=== PATIENT | female | born 1995 | race Hispanic/Latino ===

== ENCOUNTER → 2022-11-04 13:55 | Outpatient (CLI) | payer OTHER, SELFPAY ==
[2022-11-04 15:02] LABS: Appearance Urine UA CLEAR; Bilirubin Urine UA NEGATIVE (NEGATIVE); Color Urine UA YELLOW; Glucose Urine UA 1+ g/dL (Negative); Ketones Urine UA 1+ (NEGATIVE); Leukocyte Esterase Urine UA NEGATIVE (NEGATIVE); Nitrite Urine UA NEGATIVE (Negative); Occult Blood Urine UA TRACE-INTACT (Negative); Protein Urine UA NEGATIVE (Negative); Specific Gravity Urine UA >=1.030 (1.000-1.035)
[2022-11-04 15:08] LABS: Add Manual Diff / Slide Review NO; Basophils Absolute Auto 0 /uL (0-100); Basophils Percent Auto 0.2 % (0-2); Eosinophils Absolute Auto 100 /uL (0-450); Eosinophils Percent Auto 0.9 % (2-4); Hematocrit 37.2 % (36-46); Hemoglobin 12.8 g/dL (12.0-16.0); Lymphocytes Absolute Auto 1500 /uL (1100-4500); Mean Corpuscular HGB Conc 34.3 % (30-36); Mean Corpuscular Hemoglobin 29.8 PG (26-34); Mean Corpuscular Volume 86.8 fL (80-100); Monocytes Absolute Auto 700 /uL (0-900); Monocytes Percent Auto 6.9 % (3-14); Neutrophils Absolute Auto 8200 /uL (1500-7000); Platelet Count 341 X10^3/uL (150-400); Red Blood Cell Count 4.29 X10^6/uL (4.0-5.2); Red Cell Distribution Width 12.9 % (11.6-14.8); White Blood Cell Count 10.5 X10^3/uL (4.5-11.0)
[2022-11-05 03:34] LABS: RPR Screen Non Reactive (Non Reactive)
[2022-11-05 08:29] LABS: Varicella IgG Antibody 260 index (Immune >165)
[2022-11-07 16:14] LABS: Hepatitis B Surface Antigen NEGATIVE s/c (NEGATIVE)
[2022-11-07 16:30] LABS: HIV 1 & 2 Ab/Ag 4th Gen Combo NEGATIVE (NEGATIVE); Hep C Virus Ab w/Reflex Quant NEGATIVE s/c (NEGATIVE)
== END ==
PROVIDERS: PCP Internal Medicine; Referring Provider Family Medicine; Visit Provider Family Medicine
DX: Z34.81 Encounter for supervision of other normal pregnancy, first trimester (principal)
CPT/HCPCS: 36415; 80055; 81003; 86787; 86803; 86850; 86900; 86901; 87086; 87389

== ENCOUNTER → 2023-01-03 16:24 | Outpatient (CLI) | payer OTHER, SELFPAY ==
--- NOTE | 2023-01-03 16:25 | DI.US.S_ITS ---
PROCEDURE: US OB >= 14 WEEKS FETUS INDICATIONS: ANATOMY OUTSIDE/PRIOR DATING DATA: First dating scan (date and location): 01/03/2023 Estimated date of delivery (COSME) from first dating scan: 06/05/2023. TECHNIQUE: Real-time scanning was performed of the fetus, with image documentation and biometric measurements. COMPARISON: None. FINDINGS: General: A single living intrauterine gestation is present. Presentation: Breech. Placenta: Placental position is anterior , without previa. Amniotic fluid index: 13.7 cm, normal range is 5-24 cm. Single deepest vertical pocket is 4.3 cm. heart rate: 157 beats per minute. Maternal cervical canal: 5.7 cm long. Normal lower limit is 2.5 cm. biometrics: Biparietal diameter: 18 weeks 5 days Head circumference: 18 weeks 4 days Abdominal circumference: 18 weeks 3 days Femur length: 18 weeks Composite gestational age from present scan: 18 weeks 3 days Estimated weight and percentile: 232 g Anatomic survey: Neuro: Ventricles are non-dilated at less than 10 mm. Cisterna magna is normal at 3-11 mm. Cerebellum is normal in size and morphology. Nuchal skin fold: Normal at less than 6 mm between 14-21 weeks gestational age. Face: Nose and lips, facial profile are normal. Spine: No evidence for spina bifida. Heart: 4-chambered heart is present, with normal ventricular outflow tracts. Diaphragm: Diaphragm is intact. Stomach: Left-sided stomach is present. Kidneys: No hydronephrosis. Normal is less than 5 mm in 2nd trimester, less than 7 mm in 3rd trimester. Cord: 3-vessel cord has orthotopic insertion. Bladder: Normal in size. Extremities: All 4 extremities identified. IMPRESSION: 1. Single living IUP with mean composite gestational age of 18 weeks 3 days corresponding to COSME of 06/03/2023. 2. Normal anatomic survey. We strive to produce accurate, complete, and clear reports of imaging services. To assist us in improving patient care, this report was composed using standard report templates and voice recognition software. Therefore, it may contain abnormal punctuation, insertions and/or omissions. Occasional wrong-word or sound-alike substitutions may occur. Though we review the report and make efforts to correct it, we do recommend that the report be read carefully in proper context to recognize any text inaccuracies. Dictated by: Montrell KOCH Interpreted: Zeus Huitron MD on 01/03/2023 at 20:21 Approved by: Zeus Huitron M.D. on 01/04/2023 at 20:53
== END ==
PROVIDERS: PCP Internal Medicine; Referring Provider Family Medicine; Visit Provider Family Medicine
DX: Z34.92 Encounter for supervision of normal pregnancy, unspecified, second trimester (principal); Z3A.18 18 weeks gestation of pregnancy
CPT/HCPCS: 76811; 76830; 93975

== ENCOUNTER → 2023-03-02 16:47 | Outpatient (CLI) | payer OTHER, SELFPAY ==
[2023-03-02 18:29] LABS: Appearance Urine UA CLOUDY; Bilirubin Urine UA NEGATIVE (NEGATIVE); Color Urine UA YELLOW; Glucose Urine UA NEGATIVE (Negative); Ketones Urine UA NEGATIVE (NEGATIVE); Leukocyte Esterase Urine UA 2+ (NEGATIVE); Nitrite Urine UA NEGATIVE (Negative); Occult Blood Urine UA 2+ (Negative); Protein Urine UA TRACE (Negative); Specific Gravity Urine UA 1.015 (1.000-1.035); Urobilinogen Urine UA 0.2 E.U./dL (0.2)
[2023-03-02 18:51] LABS: RBC Urine 1-5/HPF (0-5/HPF)
[2023-03-02 18:52] LABS: Amorphous Sediment Urine 2+; Bacteria Urine Many (>30); Culture Indicated Urine Specimen Cultured; Squamous Epithelial Cell Urine 10-30 /HPF (0-5/HPF); WBC Urine 5-10/HPF (0-5/HPF)
== END ==
PROVIDERS: PCP Internal Medicine; Referring Provider Family Medicine; Visit Provider Family Medicine
DX: R30.0 Dysuria (principal)
CPT/HCPCS: 81001; 87086

== ENCOUNTER → 2023-03-21 16:50 | Outpatient (CLI) | payer OTHER, SELFPAY ==
--- NOTE | 2023-03-21 16:53 | DI.US.S_ITS ---
PROCEDURE: US RENAL COMPLETE INDICATIONS: RIGHT BACK/FLANK PAIN. . TECHNIQUE: Real-time scanning was performed of the kidneys and bladder, with image documentation. COMPARISON: None. FINDINGS: Kidneys: Kidneys are normal in size. Right kidney measures 11.5 cm long; left kidney measures 10.1 cm long. Right renal cortical thickness is 1.1 cm; left renal cortical thickness is 1.4 cm. Renal cortical echotexture is normal. No hydronephrosis or nephrolithiasis. No suspicious solid mass lesions. Trace postvoid pelviectasis noted Bladder: Pre-void bladder volume is 179 mL. Post-void residual is 13 mL. Pre-void images demonstrate no intraluminal masses or stones. On pre-void images, bilateral ureteral jets are noted with color Doppler interrogation. (Of note, ureteral jets may not be detectable in up to 25% of cases due to insufficient differences in specific gravity between ureteral and bladder urine). Miscellaneous: No free pelvic fluid. Incidental single live intrauterine noted IMPRESSION: Trace right renal postvoid caliectasis Approved by: Milton Garcia M.D. on 03/22/2023 at 18:16
== END ==
PROVIDERS: PCP Family Medicine; Referring Provider Family Medicine; Visit Provider Family Medicine
DX: O99.891 Other specified diseases and conditions complicating pregnancy (principal); R10.9 Unspecified abdominal pain; M54.9 Dorsalgia, unspecified
CPT/HCPCS: 76770

== ENCOUNTER → 2023-03-22 08:04 | Outpatient (CLI) | payer OTHER, SELFPAY ==
[2023-03-22 10:15] LABS: Hematocrit 32.4 % (36-46); Hemoglobin 10.9 g/dL (12.0-16.0)
[2023-03-22 10:36] LABS: GTT (PREG) 1 Hour PP 50gm Dose 139 mg/dL (76-139)
== END ==
PROVIDERS: PCP Family Medicine; Referring Provider Family Medicine; Visit Provider Family Medicine
DX: Z34.81 Encounter for supervision of other normal pregnancy, first trimester (principal)
CPT/HCPCS: 36415; 82950; 85014; 85018

== ENCOUNTER → 2023-05-22 11:03 | Outpatient (CLI) | payer OTHER, SELFPAY ==
[2023-05-23 16:17] LABS: Strep Grp B PCR NEG for Grp B Strep
== END ==
PROVIDERS: PCP Family Medicine; Visit Provider Family Medicine
DX: Z34.81 Encounter for supervision of other normal pregnancy, first trimester (principal)
CPT/HCPCS: 87653

== ENCOUNTER 2023-05-30 14:58 | Outpatient (CLI) | payer OTHER, SELFPAY ==
--- NOTE | 2023-05-30 15:22 | PM.OBTRLD ---
Visit Information Visit Information Date of evaluation: 05/30/23 Reason for Evaluation: Yes non-stress test non-stress test reason: decreased movement PFSH Medical History Healthy adult Surgical History History of dilation and curettage Family History Mother Twins, both stillborn Social History marital status: unmarried,living together number of children: 0 household members: significant other and family lives independently: Yes caregiver/support person: No housing: house pets and animals: No education level: college occupational status: employed and student current occupational exposures/hazards: No special nirav needs: No travel history: other seatbelt use: always water heater temp set < 120 deg: Yes working smoke detector in home: Yes fire extinguisher in home: Yes carbon monox detector in home: Yes firearms in home: No do you feel safe at home: Yes Smoking Status: Never smoker second hand exposure: No alcohol intake: former substance use type: does not use during the past year weight has: remained stable well-balanced diet: rarely or never daily servings fruits/ve-1 caffeine: Yes (AM cup of coffee) Type(s) of exercise: irregular exercise Evaluation Evaluation Baseline heart rate: 120 Variability: Moderate (11-25) monitor accelerations: Present Monitor Decelerations: Absent Category of Tracing: Reactive Diagnosis, Plan/Disposition Plan/Disposition Plan: 27yo at 39w1d here for decreased movement. NST reactive. Stable for d/c home. Discussed kick counts. OB Disposition: home
== END 2023-05-30 15:37 | disposition home or self-care (01) ==
LOC: LABOR 15:22 → OB 06-02 10:26
PROVIDERS: PCP Family Medicine; Referring Provider Family Medicine; Visit Provider Family Medicine
DX: O36.8130 Decreased fetal movements, third trimester, not applicable or unspecified (principal); Z3A.39 39 weeks gestation of pregnancy
CPT/HCPCS: 59025; G0378; G0379

== ENCOUNTER 2023-06-12 19:36 | Inpatient (IN) | payer OTHER, SELFPAY ==
[2023-06-12] MEDS: miSOPROStoL 25 MCG TABLET VAG (21:51)
[2023-06-12 22:05] LABS: Add Manual Diff / Slide Review NO; Basophils Absolute Auto 0 /uL (0-100); Basophils Percent Auto 0.2 % (0-2); Eosinophils Absolute Auto 200 /uL (0-450); Eosinophils Percent Auto 1.3 % (2-4); Hemoglobin 11.4 g/dL (12.0-16.0); Lymphocytes Absolute Auto 2100 /uL (1100-4500); Lymphocytes Percent Auto 18.5 % (25-40); Mean Corpuscular HGB Conc 33.6 % (30-36); Mean Corpuscular Hemoglobin 28.4 PG (26-34); Mean Corpuscular Volume 84.4 fL (80-100); Monocytes Absolute Auto 800 /uL (0-900); Monocytes Percent Auto 6.6 % (3-14); Neutrophils Absolute Auto 8400 /uL (1500-7000); Neutrophils Percent Auto 73.4 % (50-75); Platelet Count 285 X10^3/uL (150-400); Red Blood Cell Count 4.04 X10^6/uL (4.0-5.2); Red Cell Distribution Width 16.1 % (11.6-14.8); White Blood Cell Count 11.5 X10^3/uL (4.5-11.0)
[2023-06-13] MEDS: miSOPROStoL 25 MCG TABLET VAG (02:51)
--- NOTE | 2023-06-13 08:29 | P.HPOB_ITS ---
OB HPI Date/Time Date of admission: 06/12/23 Date Patient Seen: 06/13/23 History of Present Condition Chief complaint: induction COSME Calculator 2 Estimated Delivery Date Method Current WG Current Estimate 06/05/23 Manual 41w 1d Final COSME - ZAK Other Estimates 05/31/23 Ultrasound #1 41w 6d 06/05/23 Ultrasound #2 41w 1d Estimated Gestational Age (weeks): 41w1d : 2 Para: 0 Narrative: 27yo at 41w1d here for post-dates IOL. The pt denies any vaginal bleeding, LOF, contractions. She is feeling her baby move regularly. Her has been uncomplicated. care: good care, initiated at week # (9) and pounds weight gain (36) Dating criteria OB: LMP confirmed by 1st trimester US Ultrasounds: normal 1st trimester US and normal mid trimester US Obstetrical complications: none Medical complications OB: none Indications Indication for induction OB: post dates Preadmission Labs Last OB Lab Results: 2 Blood Type B Positive 06/12/23 21:40 Antibody Screen Negative 06/12/23 21:40 Hematocrit 34.0 % (36-46) L 06/12/23 21:40 Hemoglobin 11.4 g/dL (12.0-16.0) L 06/12/23 21:40 Hepatitis B Surface Antigen Negative s/c (NEGATIVE) 11/04/22 13 :59 Hepatitis C Antibody Negative s/c (NEGATIVE) 11/04/22 13:59 Rubella Antibody 35.0 IU/mL (>15) 11/04/22 13:59 Varicella-Zoster IgG Antibody 260 index (Immune >165) 11/04/22 13:59 Glucose 1 Hour 139 mg/dL (76-139) 03/22/23 09:19 Group B Streptococcus (PCR) Neg for grp b strep 05/22/23 11:03 -: Urine: negative External Labs -: Urine: negative Prior (ies) Past Pregnancies Del. Date GA/Weeks Labor Lgth Wt Sex Route Outcome Anesthesia Place Delv Breastfeed Preg Comp Name 02/07/18 7-8 elective Delivery Date: 02/07/18 Last Updated by: Helga Hunter, RN D&C, recovered without complications Evaluation Evaluation Baseline heart rate: 120 Variability: Moderate (11-25) monitor accelerations: Present Monitor Decelerations: Absent Dilation (cm): 1 Effacement (%): 70 Dilation: 1-2 cm Effacement: 60-70% station: -2 Position of cervix: posterior Consistency: soft Yeboah score: 6 PFSH Medical History Healthy adult Surgical History History of dilation and curettage Family History Mother Twins, both stillborn Social History marital status: unmarried,living together number of children: 0 household members: significant other and family lives independently: Yes caregiver/support person: No housing: house pets and animals: No education level: college occupational status: employed and student current occupational exposures/hazards: No special nirav needs: No travel history: other seatbelt use: always water heater temp set < 120 deg: Yes working smoke detector in home: Yes fire extinguisher in home: Yes carbon monox detector in home: Yes firearms in home: No do you feel safe at home: Yes Smoking Status: Never smoker second hand exposure: No alcohol intake: former substance use type: does not use during the past year weight has: remained stable well-balanced diet: rarely or never daily servings fruits/ve-1 caffeine: Yes (AM cup of coffee) Type(s) of exercise: irregular exercise Meds Home Medications and Allergies Home Medications Medication Instructions Recorded Confirmed Type prenat.vits,jen,qyl-gtau-nmjft 1 tab PO DAILY 10/13/22 06/05/23 History cephalexin 500 mg capsule 500 mg PO BID #10 caps 03/03/23 06/05/23 Rx hydrocodone 5 mg-acetaminophen 325 1 tab PO TID PRN pain #10 tabs 03/03/23 06/05/23 Rx mg tablet fluconazole 150 mg tablet 150 mg PO DAILY #1 tab 03/06/23 06/05/23 Rx Allergies Allergy/AdvReac Type Severity Reaction Status Date / Time No Known Drug Allergies Allergy Unverified 06/05/23 10:19 OB Exam Resp Effort & Inspection: normal respiratory effort Auscultation: clear to auscultation bilaterally Cardio Rate: regular rate Rhythm: regular rhythm Heart Sounds: S1 normal, S2 normal and no murmurs GI Inspection: non-distended Palpation: Yes soft and No tender Presentation: vertex Objective Labs 06/12/23 21:40 Labs: Laboratory Results - last 24 hr 06/12/23 21:40 WBC 11.5 H RBC 4.04 Hgb 11.4 L Hct 34.0 L MCV 84.4 MCH 28.4 MCHC 33.6 RDW 16.1 H Plt Count 285 Neut % (Auto) 73.4 Lymph % (Auto) 18.5 L Bleckley % (Auto) 6.6 Eos % (Auto) 1.3 L Baso % (Auto) 0.2 Neut # (Auto) 8400 H Lymph # (Auto) 2100 Bleckley # (Auto) 800 Eos # (Auto) 200 Baso # (Auto) 0 Blood Type B Positive Antibody Screen Negative Assessment and Plan Assessment and Plan Assessment and Plan narrative: 27yo at 41w1d here for post-dates IOL. GBS negative, Rh positive. No complications with . Pt received 3 doses of cytotec overnight. Minimal cervical change. After informed consent, rodas catheter placed and inflated with 60cc of NS. Gentle traction applied. - Expectant management, anticipate - FHT reassuring - GBS negative, no prophylaxis indicated - Continue traction on rodas, remove after 12hrs or if falls out earlier - Plan on one additional dose of cytotec PO
[2023-06-13] MEDS: miSOPROStoL 25 MCG TABLET 50 MCG PO (08:30)
[2023-06-13] MEDS: LACTATED RINGERS 1,000 ML 100 ML IV ×3 (12:30→20:29)
[2023-06-13] MEDS: OXYTOCIN PREMIX 30 UNIT/500 ML PLAST..BAG IV (12:35)
--- NOTE | 2023-06-13 13:36 | PM.OBPNLAB ---
Date/Time Date Patient Seen: 06/13/23 Time Patient Seen: 13:36 Pain Control Pain control: tolerating well Pelvic Exam Dilation (cm): 4 Effacement (%): 70 station: -2 Amniotic membrane status: Intact Contractions Pitocin rate (mU/min): 2 Contraction frequency (min): 3 Contraction pattern: Irregular Status Heart Rate Baseline: 125 Monitor Accelerations: Present Monitor Decelerations: Absent Monitor Variability: Moderate Assessment and Plan Comments: 27yo at 41w1d here for post-dates IOL. GBS negative, Rh positive. No complications with . Pt received 3 doses of cytotec overnight. Minimal cervical change. Sheets catheter placed this morning, just removed as was sitting in the vagina. Good cervical change. - Anticipate - FHT reassuring - GBS negative, no prophylaxis indicated - Titrate up pitocin as tolerated
[2023-06-13] MEDS: fentaNYL 100 MCG/2 ML INJ 50 MCG IV (17:24)
--- NOTE | 2023-06-13 18:23 | PM.AN.REGBLK ---
Regional Block Pre-procedure Procedure: Continuous Lumbar Epidural for L&D Attending OB provider: Kenyatta Gomez PMH/ROS narrative: IOL for post dates. No medical or obstetric complications. ASA Class: II Labs: Hct 34.0 % (36-46) L 06/12/23 21:40 Plt Count 285 X10^3/uL (150-400) 06/12/23 21:40 Medications: Current Medications Generic Name Dose Route Start Last Admin Trade Name Freq PRN Reason Stop Dose Admin Calcium Carbonate 1,000 mg 06/12/23 19:54 Calcium Carbonate 500 Mg Tab PO Q4HR PRN Dyspepsia Carboprost Tromethamine 250 mcg 06/12/23 19:54 Carboprost 250 Mcg/Ml Ampul IM Q90M PRN Bleeding Fentanyl 50 mcg 06/12/23 19:54 06/13/23 17:24 Fentanyl 100 Mcg/2 Ml Inj IV 50 mcg Q1H PRN Administration Pain, Moderate (4-6) Oxytocin/Lactated Ringer's 30 unit in 500 mls @ 200 mls/hr 06/12/23 19:54 Oxytocin Premix IV CONT PRN Bleeding Protocol Oxytocin/Lactated Ringer's 30 unit in 500 mls @ 2 mls/hr 06/12/23 20:00 06/13/23 12:35 Oxytocin Premix IV 2 milliunit/min TITRATE HILARY 2 mls/hr Administration Protocol 2 MILLIUNIT/MIN Lactated Ringer's 1,000 mls @ 100 mls/hr 06/12/23 20:00 06/13/23 12:30 Lactated Ringers IV 100 mls/hr CONT HILARY Administration Tranexamic Acid 1,000 mg/ 100 mls @ 200 mls/hr 06/12/23 19:54 Sodium Chloride IV NOW PRN Bleeding Lidocaine HCl 20 ml 06/12/23 19:54 Lidocaine 1% 20 Ml INJ INTRA-OP PRN Post Delivery Methylergonovine Maleate 0.2 mg 06/12/23 19:54 Methylergonovine 0.2 Mg/Ml Vial IM NOW PRN Bleeding Methylergonovine Maleate 0.2 mg 06/12/23 19:54 Methylergonovine 0.2 Mg Tablet PO Q6HR PRN Heavy Bleeding Misoprostol 400 mcg 06/12/23 19:54 Misoprostol 200 Mcg Tablet SL NOW PRN Bleeding Misoprostol 25 mcg 06/12/23 20:00 06/13/23 02:51 Misoprostol 25 Mcg Tablet VAG 25 mcg Q4H HILARY Administration Misoprostol 800 mcg 06/12/23 19:54 Misoprostol 200 Mcg Tablet MT NOW PRN Bleeding Misoprostol 50 mcg 06/13/23 09:00 06/13/23 08:30 Misoprostol 25 Mcg Tablet PO 50 mcg QID HILARY Administration Naloxone HCl 0.2 mg 06/12/23 19:54 Naloxone 0.4 Mg/Ml Vial IV Q2MIN PRN Opiate Reversal Ondansetron HCl 4 mg 06/12/23 19:54 Ondansetron 4 Mg/2 Ml Inj IV Q4HR PRN Nausea And Vomiting Oxytocin 10 unit 06/12/23 19:54 Oxytocin 10 Unit/Ml Vial IM NOW PRN Bleeding Allergies: Allergies Allergy/AdvReac Type Severity Reaction Status Date / Time No Known Drug Allergies Allergy Unverified 06/05/23 10:19 Procedure Insertion date: 06/13/23 Insertion time: 18:05 Prep/Local: betadine x3 and 1% lidocaine Interspace: L2-3 Patient position: sitting Needle: 18 gauge Hustead (CSE: 27g Pencan through Hustead, clear CSF, 0.75mL 0.25% MPF bupiv) Loss of resistance with: saline LEONID at (cm): 5 Catheter placed at SKIN (cm): 10 Catheter in SPACE (cm): 5 Initial Medications TEST DOSE time: 18:07 TEST DOSE: 1.5% lidocaine with epinephrine 1:200k (mL): 3 BOLUS DOSE time: 18:20 BOLUS DOSE (mL): 4 BOLUS DOSE med: other (infusate) Infusion INFUSION: 0.125% bupivacaine and with fentanyl 2 mcg/mL Initial rate (mL/hr): 6 Subsequent interventions: To OR for CS Post-procedure Anesthesia date START: 06/13/23 Anesthesia time START: 17:55 Anesthesia date END: 06/14/23 Anesthesia time END: 05:52 Post-procedure Anesthesia Assessment: Yes CV function: HR/BP stable, Yes Resp function: RR/sat/airway adequate, Yes Post-op hydration adequate, Yes Pain control adequate, Yes Nausea & vomiting absent, Yes Temperature > 36 C, Yes Mental status appropriate and No Anesthesia complications
--- NOTE | 2023-06-13 19:26 | PM.OBPNLAB ---
Date/Time Date Patient Seen: 06/13/23 Time Patient Seen: 19:26 Pain Control Pain control: epidural Pelvic Exam Dilation (cm): 6 Effacement (%): 90 station: -2 Amniotic membrane status: Ruptured Comments: After informed consent, AROM performed with meconium-stained fluid present Contractions Monitor mode: External Pitocin rate (mU/min): 0 Contraction frequency (min): 2 Contraction pattern: Irregular Status Heart Rate Baseline: 150 Monitor Accelerations: Present Monitor Decelerations: Absent Monitor Variability: Moderate Assessment and Plan Comments: 27yo at 41w1d here for post-dates IOL. GBS negative, Rh positive. No complications with . Pt received 3 doses of cytotec overnight. Minimal cervical change. Sheets catheter placed this morning, fell out. Pt on pitocin, however with recurrent variable decels at max of 8 and had to be turned off. After allowing for recovery, AROM performed with meconium-stained fluid present. FHT now reassuring, contractions very irregular. Will monitor contractions, re-initiate pitocin in 30 minutes if needed.
[2023-06-14] MEDS: FENT 2MCG/ML BUPIV 0.125% EPI 200 MCG/100 ML PLAST..BAG 6 MCG EPIDURAL ×2 (02:34→02:36)
[2023-06-14] MEDS: LACTATED RINGERS 1,000 ML 100 ML IV (02:35)
[2023-06-14] MEDS: LIDOCAINE 2% (GLYDO) 6 ML GEL TOP (03:11)
--- NOTE | 2023-06-14 04:52 | PM.PREOP ---
Pre-operative Note Interval Note History & Physical reviewed/Exam performed by Physician: Yes Changes to H&P: Yes
--- NOTE | 2023-06-14 04:53 | PM.OBPNLAB ---
Date/Time Date Patient Seen: 06/14/23 Time Patient Seen: 04:53 Pain Control Pain control: epidural Pelvic Exam Dilation (cm): 8 Effacement (%): 90 station: -1 Amniotic membrane status: Ruptured Contractions Monitor mode: External Contraction frequency (min): 2 Contraction duration (min): 1 Contraction pattern: Irregular Status status: Category ll Heart Rate Baseline: 150 Monitor Accelerations: Present Monitor Decelerations: Variable Monitor Variability: Moderate Assessment and Plan Comments: 27yo at 41w1d here for post-dates IOL. GBS negative, Rh positive. No complications with . Pt received 3 doses of cytotec initially. Sheets catheter was then placed which fell out. Pt was on pitocin, however with recurrent variable decels at max of 8 and had to be turned off. After allowing for recovery, AROM performed with meconium-stained fluid present. FHT now with frequent deep variable decels, frequently requiring hands and knees positioning for recovery. Pt has made cervical change, however baby already with caput present and pelvis remains very tight, concerning for ability for descent if she reaches complete dilation. Due to nonreassuring FHT, will proceed with primary . Discussed risks including but not limited to bleeding/hemorrhage, infection, injury to other organs such as bowel/bladder, injury to fetus. The pt agrees to blood transfusion if medically necessary. Consent was signed and placed in chart. Pt will receive 2g Ancef and 500mg Azithromycin prior to surgery. SCDs to be placed.
[2023-06-14] MEDS: CEFAZOLIN 2 GM/100 ML PREMIX 100 ML IV (06:08)
[2023-06-14] MEDS: AZITHROMYCIN 500 MG in DEXTROSE 5% IN WATER 250 ML 250 MG IV (06:20)
--- NOTE | 2023-06-14 06:23 | SUR.OPER ---
Supine on Padded OR bed, head on pillow, safety belt at thigh, arms secured on padded arm boards at <90 degrees abduction. Bump under right buttock. Legs uncrossed with pillow under knees, gel pad to heels, tape over blanket to lower legs.
[2023-06-14] MEDS: ACETAMINOPHEN IV 1,000 MG/100 ML VIAL 400 MG IV (06:36)
--- NOTE | 2023-06-14 06:46 | SUR.OPER ---
Addendum entered by Parviz Horton R.N. 06/14/23 06:51: 4/8 Original Note: viable baby boy born at 0627, placenta delivered at 0633, cord blood and placenta given to OB RN to transport with them
[2023-06-14 07:20] VITALS: BP 125/64; PULSE 86; RESP 16; TEMP 36.5; O2SAT 99
[2023-06-14 07:26] VITALS: BP 126/71; PULSE 85; RESP 20; TEMP 36.6; O2SAT 98
--- NOTE | 2023-06-14 07:32 | PM.OBCS.1 ---
Operative Date/Time/Diagnoses Date of procedure: 06/14/23 Time of procedure: 06:00 Pre-op diagnosis: 41w2d gestation GBS negative Rh positive Meconium-stained amniotic fluid Nonreassuring heart tones Post-op diagnosis: same Procedure & Clinicians Procedure: Primary Same procedure as scheduled: Yes Indications: Nonreassuring heart tones Surgeon: Kenyatta Gomez Banquet Captain: Eriberto Casiano Anesthesia Type: Spinal Operative Notes Findings: Normal uterus, ovaries, and tubes Closure Type: primary Specimen(s): cord blood Intraoperative meds administered: Acetaminophen, Duramorph, Ketorolac and Pitocin Applied: Catheter Estimated Blood Loss (mL): 400 Blood products transfused: none Procedure in detail: OPERATIVE COURSE: The patient was taken to the operating room where spinal anesthesia was placed. She was then prepared and draped in the normal sterile fashion in the dorsal supine position with a leftward tilt. Anesthesia was tested and found to be adequate. A Pfannensteil skin incision was then made with the scalpel and carried through to the underlying layer of fascia with the scalpel. The fascia was incised in the midline and the incision extended laterally with the Doherty scissors. The superior aspect of the fascial incision was then grasped with Jeniffer clamps, elevated with the help of the surgical services coordinator, and the underlying rectus muscles dissected off bluntly and sharply where needed. Attention was then turned to the inferior aspect of the incision which, in a similar fashion, was grasped, tented up with Jeniffer clamps, and the rectus muscle dissected off bluntly and sharply with Doherty scissors. The rectus muscles were then in the midline, and the peritoneum was identified and entered bluntly. The peritoneal incision was then extended with good visualization of the bladder. Retraction was provided by the surgical services coordinator. The bladder blade was then inserted and the vesicouterine peritoneum identified, grasped with pick-ups and entered sharply with the Metzenbaum scissors. The incision was then extended laterally and the bladder flap created digitally. The bladder blade was then reinserted and the lower uterine segment incised in a transverse fashion with the scalpel, with the surgical services coordinator providing suction. The uterine incision was then extended superolaterally by pulling superolaterally on both sides. Membranes were ruptured and very thick meconium was present. The bladder blade was removed the 's head was flexed out of OA position and delivered atraumatically, with fundal pressure by the surgical services coordinator. The nose and mouth were suctioned with bulb suction and the cord was clamped and cut. The infant was handed off to the waiting nursing staff. Cord blood was collected for Rh status. The placenta was then delivered with gentle cord traction. The uterus was then cleared of all clots and debris. The uterine incision was repaired with O Vicryl in a running, locked fashion. A second layer of the same suture was used to obtain excellent hemostasis. The bladder flap was closed with 2-O Chromic. The gutters were cleared of all clots. Hysterotomy was investigated and found to be hemostatic. The peritoneum was closed with 3-O Vicryl. The fascia was reapproximated with O Vicryl in a running fashion. The subcutaneous tissue was reapproximated with 3-O Vicryl. The skin was closed with 4-O Vicryl. The surgical services coordinator helped with retraction during closures. SPONGE AND NEEDLE COUNTS: Correct x3. DRESSING: Aquacel ANTICOAGULATION: SCDs applied prior to Surgery Preop antibiotics given (see MAR). The patient was taken to recovery room having tolerated procedure well. Complications: none Baby 1: Infant Gender: Male Presentation: vertex Position: Left Occiput Anterior Placental Delivery Description: Spontaneous Cord Vessel Description: 3 Vessels and Nuchal Cord score (1 min): 4 score (5 min): 8 weight: 6 lb 9.998 oz Post-operative Condition: stable Disposition: PACU Aftercare: routine postop
[2023-06-14 07:33] VITALS: BP 133/91; PULSE 85; RESP 16; O2SAT 98
[2023-06-14 11:19] LABS: Add Manual Diff / Slide Review NO; Basophils Absolute Auto 100 /uL (0-100); Basophils Percent Auto 0.4 % (0-2); Eosinophils Absolute Auto 0 /uL (0-450); Hematocrit 31.3 % (36-46); Hemoglobin 10.5 g/dL (12.0-16.0); Lymphocytes Absolute Auto 1300 /uL (1100-4500); Lymphocytes Percent Auto 6.4 % (25-40); Mean Corpuscular HGB Conc 33.5 % (30-36); Mean Corpuscular Hemoglobin 28.3 PG (26-34); Mean Corpuscular Volume 84.3 fL (80-100); Monocytes Absolute Auto 800 /uL (0-900); Monocytes Percent Auto 3.8 % (3-14); Neutrophils Absolute Auto 17600 /uL (1500-7000); Neutrophils Percent Auto 89.4 % (50-75); Platelet Count 249 X10^3/uL (150-400); Red Blood Cell Count 3.71 X10^6/uL (4.0-5.2); Red Cell Distribution Width 16.4 % (11.6-14.8); White Blood Cell Count 19.7 X10^3/uL (4.5-11.0)
[2023-06-14] MEDS: KETOROLAC 30 MG/ML VIAL IV ×2 (12:59→20:06)
[2023-06-14 17:46] VITALS: TEMP 35.6
[2023-06-14] MEDS: ACETAMINOPHEN 325 MG TABLET 650 MG PO (17:46)
[2023-06-15] MEDS: ACETAMINOPHEN 325 MG TABLET 650 MG PO ×4 (00:11→22:50)
[2023-06-15] MEDS: KETOROLAC 30 MG/ML VIAL IV (02:12)
[2023-06-15] MEDS: IBUPROFEN 600 MG TABLET PO ×2 (08:31→18:05)
--- NOTE | 2023-06-15 11:53 | PM.OBPN.1 ---
Subjective - OB Subjective Patient comments: no complaints and pain well controlled baby status: doing well and nursing well feeding status: exclusively breast feeding Narrative: Patient reports that she is doing well. Her lochia is decreasing appropriately. She has voided successfully. She is ambulating. Exam Vital Signs (past 8 hours): Oxygen Delivery Method Room Air Resp Auscultation: clear to auscultation bilaterally Cardio Rate: regular rate Rhythm: regular rhythm Heart Sounds: S1 normal, S2 normal and no murmurs GI Inspection: non-distended and incision (dressing c/d/i) Palpation: soft, No guarding and tender (appropriately tender) Auscultation: normal bowel sounds Other: fundus firm and below the umbilicus Extrem Right upper extremity: no edema Objective Labs 06/14/23 11:10 Assessment & Plan Plan Comments: Pt is a 27yo POD#1 s/p primary for nonreassuring FHT without complications. Pt doing well. - Normal care - support Time Spent With Patient Time: Total time spent is greater than 50% in coordination of care (as documented) at patient's floor/unit and/or counseling patient: Time with patient: less than 15 minutes
[2023-06-16] MEDS: LANOLIN OINT 7 GM 1 APPLIC TOP (00:23)
[2023-06-16] MEDS: IBUPROFEN 600 MG TABLET PO ×2 (00:24→05:38)
[2023-06-16] MEDS: ACETAMINOPHEN 325 MG TABLET 650 MG PO (05:37)
--- NOTE | 2023-06-16 08:48 | PM.OBDS.1 ---
Discharge Providers Provider Date of admission: 06/12/23 19:36 Discharge Date: 06/16/23 Primary care physician: Kenyatta Gomez MD Consults: 06/14/23 08:15 Consult to Clinical Rehabilitation Aide Routine Comment: Discharge provider: Kenyatta Gomez MD Summary Hospital Course Date Patient Seen: 06/16/23 Time Patient Seen: 08:48 Diagnoses: 41w2d gestation GBS negative Rh positive Meconium-stained amniotic fluid Nonreassuring heart tones Hospital Course: The pt presented for post-dates IOL. She received cytotec for induction, followed by a rodas catheter that fell out. She received an epidural for pain control. She was then initiated on pitocin, that had to be turned off due to nonreassuring FHT. AROM was performed with thick meconium present. The pt continued to gradually progress, however with ongoing Category II tracing. Due to slow progress, with nonreassuring FHT, and significant caput already forming the decision was made to proceed with primary . The surgery was without complications, and the pt delivered a viable baby boy. , there were no complications. At the time of discharge she was voiding, ambulating, and passing flatus without difficulty. Her lochia was decreasing appropriately. Her pain was well controlled. She was with good latch. She will f/u in 6 weeks for check. She would like OCPs for contraception, started on Micronor now. Peripartum Data Delivery Method: Section Procedures: Primary complications: none Geary 1: Gender: Male Disposition of : home Status at Discharge Cognitive/behavioral status at discharge: oriented Functional status at discharge: independent ambulation Overall status at discharge: patient is progressing back to baseline Time Spent with Patient Time attestation: Total time spent providing and/or coordinating discharge services: Objective Labs 06/14/23 11:10 Exam Vital Signs (past 8 hours): Oxygen Delivery Method Room Air Resp Auscultation: clear to auscultation bilaterally Cardio Rate: regular rate Rhythm: regular rhythm Heart Sounds: S1 normal, S2 normal and no murmurs GI Inspection: non-distended and incision (dressing c/d/i) Palpation: soft, No guarding and tender (appropriately tender) Auscultation: normal bowel sounds Other: fundus firm and below the umbilicus Extrem Right upper extremity: no edema Discharge Plan Discharge Plan Patient Disposition: Home Discharge orders & Medications Prescriptions: New acetaminophen 325 mg Tablet 650 mg PO Q6H Qty: 60 0RF docusate sodium 100 mg Capsule 100 mg PO DAILY Qty: 30 0RF ibuprofen 600 mg Tablet 600 mg PO Q6H Qty: 60 0RF oxycodone 5 mg Tablet 5 mg PO Q4H PRN (Reason: Pain, Moderate (4-6)) Qty: 30 0RF Continued prenat.vits,jen,[id number]-[id number] Tablet 1 tab PO DAILY Discontinued cephalexin 500 mg capsule 500 mg PO BID Qty: 10 0RF hydrocodone-acetaminophen 5-325 mg tablet 1 tab PO TID PRN (Reason: pain) Qty: 10 0RF fluconazole 150 mg tablet 150 mg PO DAILY Qty: 1 0RF No Action norethindrone (contraceptive) 0.35 mg tablet 0.35 mg PO DAILY Qty: 84 4RF Follow up/Referrals: Kenyatta Gomez MD [Primary Care Provider] - (one week post incision check appointment: June 20 at 12:15 pm. six week appointment: July 25 at 1:30 pm. ) Diet/Activity/Treatments Diet: Diet as Tolerated and Regular Skin/Wound/Dressing Care Report to your healthcare provider any signs of infection, such as:: chills, fever, increased pain and unusual drainage Visit Report/Discharge Packet Instructions: DI for Stand Alone Forms: Discharge: Care, Patient Portal/API, Stroke Signs & Symptoms Discharge Data Primary Care Provider: Kenyatta Gomez Discharges patient from system. Discharge Date/Time: 06/16/23 10:35
== END 2023-06-16 10:35 | disposition home or self-care (01) | DRG 788 ==
PROVIDERS: Admitting Provider Family Medicine; PCP Family Medicine; Referring Provider Family Medicine; Visit Provider Family Medicine
PROC: 10D00Z1 Extraction of Products of Conception, Low, Open Approach (ICD-10-PCS; CPT 59514; principal; 2023-06-14 06:00)
DX: O76 Abnormality in fetal heart rate and rhythm complicating labor and delivery (principal); O48.0 Post-term pregnancy; Z3A.41 41 weeks gestation of pregnancy; Z37.0 Single live birth
CPT/HCPCS: 36415; 59050; 59200; 59510; 59514; 85025; 86850; 86900; 86901; G0379; J0136; J0690; J1885; J2274; J2405; J2590; J2704; J3010

== ENCOUNTER → 2023-07-14 10:31 | Outpatient (CLI) | payer OTHER, SELFPAY | PROVIDERS: PCP Family Medicine; Visit Provider Family Medicine | DX: Z98.891 History of uterine scar from previous surgery (principal) | CPT/HCPCS: 87070; 87077; 87186; 87205 ==